=== PATIENT | male | born 1965 | race Caucasian/White ===

== ENCOUNTER 2020-09-17 13:04 | Inpatient (IN) | payer OTHER ==
[~2020-09-17] VITALS: Ht 182.9 cm; Wt 138.8 kg
[2020-09-17 13:17] VITALS: BP 159/54
[2020-09-17 14:23] LABS: CALCIUM 7.9 mg/dL (8.5-10.1); CREATININE 1.1 mg/dL (0.6-1.3); POTASSIUM 4.1 mmol/L (3.5-5.1)
[2020-09-17 14:27] LABS: ALBUMIN 3.3 g/dL (3.4-5.0); MAGNESIUM 1.9 mg/dL (1.8-2.4); TOTAL PROTEIN 7.8 g/dL (6.4-8.2)
[2020-09-17 14:32] LABS: BE 0 mmol/L (-2 to +3); PCO2 35.5 mmHg (35.0-45.0); pH 7.441 (7.340-7.450)
[2020-09-17 14:34] LABS: PO2 57.3 mmHg (75.0-100.0)
[2020-09-17 15:12] LABS: ABSOLUTE LYMPHOCYTES 0.8 thou/uL (0.8-5.3); ABSOLUTE MONOCYTES 0.4 thou/uL (0.0-1.2); BASOPHILS 0.6 %; EOSINOPHILS 0.1 %; HEMATOCRIT 39.7 % (42.0-52.0); LYMPHOCYTES 24.7 %; MCH 31.8 pg (26.0-34.0); MCHC 35.2 g/dL (28.0-37.0); MCV 90.3 fL (80.0-100.0); MONOCYTES 11.4 %; NUCLEATED RBCS 0 /100WBC; PLATELET COUNT* 75 thou/uL (150-400); POLYS 63.2 %; RBC 4.39 mil/uL (4.50-6.00); RDW-CV 13.1 % (10.5-14.5); WBC 3.2 thou/uL (4.0-11.0)
[2020-09-17 15:58] LABS: INFLUENZA A ANTIGEN Negative (Negative); INFLUENZA B ANTIGEN Negative (Negative)
[2020-09-17 16:41] VITALS: BP 113/78
--- NOTE | 2020-09-17 17:00 | NUR ---
ASSUMED CARE OF PATIENT FROM THE ER. PT IS DOING WELL, WITH NO CO OF PIBEBE, JUST DISCOMFORT FROM COUGHING. PT WAS EDUCATED ON POC, DISEASE PROCESS AND USING THE CALL LIGHT FOR ASSISTANCE. WILL CONTINUE TO MONITOR.
[2020-09-17] MEDS ORDERED: ZINC SULFATE 2220 MG PO (19:24)
[2020-09-17] MEDS ORDERED: B COMPLEX1 EACH PO (19:25)
[2020-09-17] MEDS ORDERED: VITAMIN C500 MG/15 PO (19:26)
[2020-09-17] MEDS ORDERED: TYLENOL325 M1 PO (19:27)
[2020-09-17 19:45] VITALS: BP 125/76
[2020-09-18] VITALS: BP 138/71
[2020-09-18 04:39] VITALS: BP 133/65
--- NOTE | 2020-09-18 05:01 | NUR ---
PT SLEPT OFF AND ON OVERNIGHT. O2 3L SAT 95%. REQUESTING RECLINER STATING HE SLEEPS IN ONE AT HOME MORE COMFORTABLY-NONE AVAILABLE AT THIS TIME. STATES HE SLEPT FAIRLY COMFORTABLY WITH BED IN UPRIGHT POSITION. UP AD NORMA IN ROOM WITH O2 EXTENSION TUBING WALKING TO BR TO VOID. CONFIRMS SOME SOA WITH AMBULATION-DENIES DIZZINESS. RFA IVF INFUSING PER PUMP, ABX GIVEN ORDERED. NO LABS THIS MORNING. TELE SR. REMAINS ON ENHANCED PRECAUTION ISOLATION-NO CART AVAILABLE PER OVERNIGHT NURSING SUP. CONGESTED COUGH HEARD. COVID PCR PENDING. ABLE TO USE CALL LITE AND MAKE NEEDS KNOWN.
[2020-09-18 06:53] LABS: URINE BILIRUBIN NEGATIVE (Negative); URINE BLOOD NEGATIVE (Negative); URINE CLARITY CLEAR; URINE COLOR YELLOW; URINE GLUCOSE-RANDOM NEGATIVE (Negative); URINE KETONES TRACE (Negative); URINE LEUKOCYTES-REFLEX NEGATIVE (Negative); URINE NITRITE-REFLEX NEGATIVE (Negative); URINE PROTEIN TRACE (Negative); URINE SPECIFIC GRAVITY >= 1.030 (1.005-1.030); URINE UROBILINOGEN 0.2 E.U./dl (0.2-1.0)
[2020-09-18 08:00] VITALS: BP 151/61
--- NOTE | 2020-09-18 10:16 | EKG ---
[place] [address] ELECTROCARDIOGRAM REPORT Name: CHANINHI Room: [address] ADM IN ..#: [id number] Admission: 09/17/20 Attend Phys: Michael Zavala Discharge: Date of : 65 Date of Service: 09/17/20 1309 Report #: [id number] THIS REPORT FOR: //name// [facility] ED Test Date: 2020-09-17 Test Time: 13:09:58 Pat Name: NHI WILDE Department: Room: [facility] Gender: M Lubricating Specialist: CALE : 1965 Requested By: Carlotta Bro Order Number: [id number] MD: Marquise Zhao Measurements Intervals [place] Rate: 88 P: 3 WI: 154 QRS: 21 QRSD: 83 T: 42 QT: 330 QTc: 400 Interpretive Statements Sinus rhythm Low voltage, precordial leads RSR' in V1 or V2, probably normal variant Baseline wander in lead(s) V1,V3 No previous ECG available for comparison Electronically Signed On 09-18-2020 10:16:46 HAM FACER by Marquise Zhao [email or web address] <ELECTRONICALLY SIGNED> By: Marquise Zhao MD, FACC 09/18/20 1016 1309 1309 Marquise Zhao MD, FAC /EPI
[2020-09-18 11:24] VITALS: BP 112/61
[2020-09-18 16:00] VITALS: BP 110/54
[2020-09-18 17:28] LABS: ABSOLUTE LYMPHOCYTES 0.5 thou/uL (0.8-5.3); ABSOLUTE MONOCYTES 0.3 thou/uL (0.0-1.2); ABSOLUTE NEUTROPHILS 2.5 thou/uL (1.6-8.1); BASOPHILS 0.2 %; HEMATOCRIT 37.9 % (42.0-52.0); HEMOGLOBIN 13.2 gm/dL (14.0-18.0); LYMPHOCYTES 15.8 %; MCH 31.4 pg (26.0-34.0); MCHC 34.9 g/dL (28.0-37.0); MONOCYTES 8.7 %; NUCLEATED RBCS 0 /100WBC; PLATELET COUNT* 86 thou/uL (150-400); POLYS 75.3 %; RBC 4.21 mil/uL (4.50-6.00); RDW-CV 12.9 % (10.5-14.5); WBC 3.4 thou/uL (4.0-11.0)
[2020-09-18 17:42] LABS: APTT 28.4 Seconds (25.0-31.3); PROTIME 10.7 Seconds (9.20-11.50)
[2020-09-18 17:45] LABS: CALCIUM 7.8 mg/dL (8.5-10.1); CREATININE 1.2 mg/dL (0.6-1.3); POTASSIUM 4.1 mmol/L (3.5-5.1); TOTAL BILIRUBIN 0.6 mg/dL (<0.1-1.0); TOTAL PROTEIN 7.7 g/dL (6.4-8.2)
--- NOTE | 2020-09-18 20:44 | NUR ---
PT RESTING AT THIS TIME. 02 SAT 93% ON 3L NC. PT REPORTS PRODUCTIVE COUGH. DID HAVE INCIDENCE OF COUGHING TWICE ON SHIFT.SR ON MONITOR. PT ALSO STATED THAT DID TEST POSTIVE FOR COVID WHILE ASSESSING PT. PT STATES THAT HE DOES USUALLY SLEEP IN RECLINER AT HOME R/T GERD. PT SHOWN HOW TO PLACE BED IN CHAIR POSITION DUE TO LACK OF RECLINER AVAILABILITY. NOTHING FURTHER AT THIS TIME.CLWR.
[2020-09-18 20:45] VITALS: BP 118/47
--- NOTE | 2020-09-18 21:16 | CON ---
[address] [address] CONSULTATION Name: NHI WILDE Room: [address] IN M.R.#: [id number] Admission: 09/17/20 Attend Phys: Jesus Biggs Discharge: Date of : 65 Report #: [id number] THIS REPORT FOR: cc: EZ - Rocío family physician/PCP EZ - No family physician/PCP ~ Abdulaziz Mendez MD DATE OF SERVICE: 09/18/2020 REQUESTING PHYSICIAN: Michael Zavala DO INDICATION FOR CONSULTATION: Multifocal pneumonia and suspected COVID-19. HISTORY OF PRESENT ILLNESS: A 55-year-old gentleman with past medical history includes a history of gastroesophageal reflux disease. He also has a body mass index elevated to 42 and I suspect that he may have underlying obstructive sleep apnea, not previously diagnosed. The patient, however, otherwise does not have any other past medical history and he also is reported to be a lifetime nonsmoker. The patient is now admitted with a respiratory illness of several days' duration. He says he has been short of breath for the last one week. Shortness of breath, initially was on exertion now present at rest as well. He also reports having had a cough, but not much sputum. He reports that he has been febrile, has been having epigastric and abdominal pain and earlier had chest pain as well. He says he as a result, has had a poor appetite for the last 3 days and has had significant amounts of nausea. On admission, the patient was noted to be hypoxemic. Currently, he is requiring 3 liters of oxygen to maintain O2 saturation in the low 90s. His platelets are also low at 75 and there is mild reduction in WBC count. The patient answers to the negative for 12 questions for review of systems except as mentioned above. PAST MEDICAL HISTORY: Gastroesophageal reflux disease, morbid obesity, body mass index 42. CURRENT MEDICATIONS: List in [employer] reviewed. HOME MEDICATIONS: No known home medications. ALLERGIES: No known drug allergies. FAMILY HISTORY: No family history. PHYSICAL EXAMINATION: [place] [address] CONSULTATION Name: NHI WILDE Room: [address]#: [id number] Admission: 09/17/20 Attend Phys: Jesus Biggs Discharge: Date of : 65 Report #: [id number] GENERAL: Alert, awake and oriented, does not appear to be in any distress; however, the patient's RN reports that he is currently on 3 liters nasal cannula, maintaining his O2 saturation around 92%. Has a pulse of 69 and a blood pressure of 112/61, respiratory rate has been between 22 and 19. He is afebrile with a temperature of 36.6. HEENT: Head is normocephalic and atraumatic. NECK: Does not show raised JVP, asymmetry, mass or lymph nodes. CHEST: Symmetrical expansion on inspection and palpation. On auscultation, breath sounds are bilaterally equal, but decreased. I do not hear any added sounds. HEART: Regular. There is no murmur. ABDOMEN: Soft and nontender. EXTREMITIES: Lower extremities show minimal edema only. No calf tenderness. SKIN: Dry and intact. NEUROLOGICAL: Moves all extremities bilaterally equally and spontaneously with no focal deficit identified. LABORATORY DATA: The patient had a chest x-ray performed yesterday, which shows interstitial infiltrates consistent with COVID-19. The patient's lab work is in [employer] and this is reviewed. The patient's COVID-19 antigen is negative. The patient's COVID-19 PCR is pending. ASSESSMENT AND PLAN: 1. Acute hypoxemic respiratory failure secondary to pneumonia. The patient's chest x-ray is consistent with COVID-19. Certainly, there could be other etiologies as well. At this time, we will continue to titrate oxygen. It appears highly likely to me that the patient has obstructive sleep apnea. Therefore, I recommend having a very low threshold of using BiPAP while asleep if the patient's condition worsens. 2. Pulmonary infiltrates/pneumonia/suspected COVID-19. The patient is hypoxemic on room air. The patient also has had a drop in platelet count, and there is a mild reduction in WBC count. All of these make him high risk for progression and worsening of respiratory failure. Therefore, in addition to continuing with dexamethasone as already ordered, I recommend that we proceed with starting remdesivir as well. I will go ahead and repeat labs as well as a chest x-ray now. Some cultures and serologies are also ordered. We will review and then decide regarding whether convalescent plasma for COVID-19 should be considered as well or whether we should wait for the PCR result. If doubt remains, then I may go ahead with a CT chest, this evening. Meanwhile, we will also continue with broad-spectrum antibiotics. I did increase his dose of ceftriaxone. 3. Mild fluid overload. For now, I discontinued IV fluids. We will reassess when labs ordered now are back. 4. Morbid obesity/suspected obstructive sleep apnea. See discussion above. [address] [address] CONSULTATION Name: NHI WILDE Room: [facility] IN [facility]#: [id number] Admission: 09/17/20 Attend Phys: Jesus Biggs Discharge: Date of : 65 Report #: [id number] 5. Gastroesophageal reflux disease. He is on both Pepcid and Protonix at this time. For now, I will continue with Protonix and held Pepcid. 6. Thrombocytopenia/deep venous thrombosis prophylaxis, he is on prophylactic dose Lovenox. Note that his platelets are 75. I ordered repeat labs after which I will reassess. Continue to follow platelet count. D-dimer is also ordered. Thanks for this consultation. <ELECTRONICALLY SIGNED> By: Abdulaziz Mendez MD 09/18/20 2116 1529 1613Arina Mendez MD /nt
[2020-09-19 00:05] VITALS: BP 116/54
[2020-09-19 04:43] VITALS: BP 110/56
--- NOTE | 2020-09-19 05:04 | NUR ---
PT SLEPT OFF AND ON OVERNIGHT, CONGESTED COUGH HEARD. O2 4L SAT 91% OVERNIGHT. RAC SL, MEDICATIONS GIVEN ORDERED. UP AD NORMA IN ROOM WITH OXYGEN. PT STATES HE FEELS A LITTLE BETTER BUT "STILL AWAYS TO GO". MRSA SWAB SENT TO LAB, URINE SENT TO LAB THIS SHIFT. PT STATES HE DOES NOT WANT "ANY OF THAT TAINTED BLOOD. I DONT WANT TO GET BLOOD AT ALL." LUNGS DIM COARSE. NO LABS THIS MORNING. ABLE TO USE CALL LITE AND MAKE NEEDS KNOWN.
[2020-09-19 07:30] VITALS: BP 119/60
[2020-09-19 10:58] LABS: CALCIUM 8.4 mg/dL (8.5-10.1); CREATININE 1.2 mg/dL (0.6-1.3); POTASSIUM 3.9 mmol/L (3.5-5.1)
[2020-09-19 12:07] VITALS: BP 118/66
--- NOTE | 2020-09-19 18:02 | NUR ---
PT AO X4 SITTING IN CHAIR MOST OF DAY, IV ANTIBIOTICS AND STEROIDS INFUSING PER MAR. PT HAS COUGH AND HAS BEEN USING THE INSENTIVE SPIROMETER INSTRUCTED, REACHING 1500 AND HOLDING FOR 1-2 SECONDS EACH TIME. PT HAS BEEN ON 3L SATTING LOW 90s ALL DAY. HE HAS VOICED NO COMPLAINTS AND EATEN MOST OF HIS MEAL TRAYS TODAY, TAKING GOOD PO FLUID INTAKE.
[2020-09-19 20:18] VITALS: BP 117/68
[2020-09-20] VITALS: BP 129/79
[2020-09-20 04:00] VITALS: BP 106/65
--- NOTE | 2020-09-20 06:50 | NUR ---
PATIENT SLEPT PART OF THE NIGHT. PATIENT REMAINS ON OXYGEN AT 3L. IV REMAINS SALINE LOCKED. WILL CONTINUE TO MONITOR.
[2020-09-20 07:35] LABS: ABSOLUTE LYMPHOCYTES 0.6 thou/uL (0.8-5.3); ABSOLUTE MONOCYTES 0.4 thou/uL (0.0-1.2); ABSOLUTE NEUTROPHILS 6.8 thou/uL (1.6-8.1); HEMATOCRIT 38.3 % (42.0-52.0); HEMOGLOBIN 13.3 gm/dL (14.0-18.0); LYMPHOCYTES 7.1 %; MCH 31.1 pg (26.0-34.0); MCHC 34.8 g/dL (28.0-37.0); MCV 89.3 fL (80.0-100.0); MONOCYTES 5.6 %; MPV 9.5 fl. (7.2-11.1); NUCLEATED RBCS 0 /100WBC; PLATELET COUNT* 109 thou/uL (150-400); POLYS 87.3 %; RBC 4.29 mil/uL (4.50-6.00); RDW-CV 13.2 % (10.5-14.5); WBC 7.8 thou/uL (4.0-11.0)
[2020-09-20 07:48] LABS: ALBUMIN 2.9 g/dL (3.4-5.0); POTASSIUM 3.9 mmol/L (3.5-5.1); TOTAL BILIRUBIN 0.5 mg/dL (<0.1-1.0); TOTAL PROTEIN 7.4 g/dL (6.4-8.2)
[2020-09-20 08:00] VITALS: BP 112/70
--- NOTE | 2020-09-20 08:00 | NUR ---
ASSUMED CARE OF PATIENT THIS MORNING FROM NIGHT NURSE. PT IS DOING WELL WITH NO CO OF PAIN OR NAUSEA AT THIS TIME. HE WAS EDUCATED ONPOC, DISEASE PROCESS NEW TEST RESULTS AND USING THE CALL LIGHT FOR ASSISTSANCE. WILL CONTINUE TO MONITOR.
--- NOTE | 2020-09-20 09:39 | NUR ---
SPOKE WITH PT.ON PHONE. HE WAS ALERT AND ORIENTED. HE LIVES WITH HIS AND KIDS. IS NORMALLY INDEPENDENT. IS UNEMPLOYED AT THIS TIME. NO USE OF DME AND NO HX OF HH. PLANS TO RETURN HOME AT DISCHARGE.
[2020-09-20 20:19] VITALS: BP 117/61
[2020-09-21] VITALS (7 sets, daily range): BP systolic 101–128; BP diastolic 50–70
[2020-09-21 02:06] LABS: MYCOPLASMA PNEUMONIA IgG 543 U/mL (0-99); MYCOPLASMA PNEUMONIA IgM <770 U/mL (0-769)
[2020-09-21 08:52] LABS: ALBUMIN 2.8 g/dL (3.4-5.0); CALCIUM 7.7 mg/dL (8.5-10.1); TOTAL BILIRUBIN 0.5 mg/dL (<0.1-1.0); TOTAL PROTEIN 7.1 g/dL (6.4-8.2)
[2020-09-21 09:37] LABS: HEMATOCRIT 39.6 % (42.0-52.0); HEMOGLOBIN 13.5 gm/dL (14.0-18.0); MCH 31.3 pg (26.0-34.0); MCHC 34.1 g/dL (28.0-37.0); MCV 91.7 fL (80.0-100.0); MPV 9.5 fl. (7.2-11.1); NUCLEATED RBCS 0 /100WBC; PLATELET COUNT* 120 thou/uL (150-400); RBC 4.32 mil/uL (4.50-6.00); RDW-CV 13.3 % (10.5-14.5); WBC 7.5 thou/uL (4.0-11.0)
[2020-09-21 10:08] LABS: ABSOLUTE LYMPHOCYTES 0.8 thou/uL (0.8-5.3); ABSOLUTE MONOCYTES 0.2 thou/uL (0.0-1.2); ABSOLUTE NEUTROPHILS 6.5 thou/uL (1.6-8.1); METAMYELOCYTES 3 %; PLATELET ESTIMATE ADEQUATE
--- NOTE | 2020-09-21 16:26 | NUR ---
PT.S PCR SHOWS DETECTED COVID. IS IN ENHANCED PRECAUTIONS. ON 3-5L O2 NC. ON IV AB.
--- NOTE | 2020-09-21 18:30 | NUR ---
ASSESSMENT DOCUMENTED. MEDS GIVEN PER E-MAR. IV PATENT. PT TITRATED FROM 5L TO 3L NC THIS SHIFT. NO REPORTS OF PAIN. PT UP AD NORMA.
[2020-09-22 04:00] VITALS: BP 113/59
[2020-09-22 04:53] LABS: ALBUMIN 2.6 g/dL (3.4-5.0); CALCIUM 7.8 mg/dL (8.5-10.1); CREATININE 0.9 mg/dL (0.6-1.3); POTASSIUM 4.3 mmol/L (3.5-5.1); TOTAL BILIRUBIN 0.5 mg/dL (<0.1-1.0); TOTAL PROTEIN 6.6 g/dL (6.4-8.2)
[2020-09-22 04:58] LABS: ABSOLUTE LYMPHOCYTES 0.6 thou/uL (0.8-5.3); ABSOLUTE MONOCYTES 0.5 thou/uL (0.0-1.2); BASOPHILS 0.2 %; LYMPHOCYTES 7.9 %; MCH 31.5 pg (26.0-34.0); MCV 89.9 fL (80.0-100.0); MONOCYTES 6.6 %; MPV 9.2 fl. (7.2-11.1); NUCLEATED RBCS 0 /100WBC; PLATELET COUNT* 124 thou/uL (150-400); POLYS 85.3 %; RBC 4.12 mil/uL (4.50-6.00); RDW-CV 13.2 % (10.5-14.5); WBC 8.2 thou/uL (4.0-11.0)
--- NOTE | 2020-09-22 06:44 | NUR ---
ASSUMED CARE OF PT AFTER REPORT AT 1930. PT A&OX4. VSS. PHYSICAL ASSESSMENT COMPLETED AND CHARTED. PT O2 SAT 87-89%-INCREASED O2 TO 5L NC WITH 90% O2 SAT. PT TRACING SR/SB ON TELE. PT UPADLIB TO RESTROOM. PT DENIES ANY PAIN. PT ABLE TO SLEEP WELL IN THE RECLINER. CALL LIGHT WITHIN REACH.
[2020-09-22 07:50] VITALS: BP 116/63
[2020-09-22 12:00] VITALS: BP 146/67
--- NOTE | 2020-09-22 15:47 | NUR ---
ON 5L/NC O2. CONTINUES ON IVAB,STEROIDS, REMDESIVIR. DOES NOT HAVE HOME O2.
[2020-09-22 16:00] VITALS: BP 151/65
--- NOTE | 2020-09-22 18:19 | NUR ---
ASSESSMENT DOCUMENTED. MEDS GIVEN PER E-MAR. IV PATENT. NO REPORTS OF PAIN THIS SHIFT. PT ON 5L NC THIS SHIFT. PT REPORTED BLOODY STOOLS. DR NOTIFED.
[2020-09-22 20:00] VITALS: BP 132/81
[2020-09-23] VITALS: BP 127/52
[2020-09-23 03:55] LABS: ABSOLUTE LYMPHOCYTES 0.7 thou/uL (0.8-5.3); ABSOLUTE MONOCYTES 0.6 thou/uL (0.0-1.2); ABSOLUTE NEUTROPHILS 10.1 thou/uL (1.6-8.1); BASOPHILS 0.2 %; HEMATOCRIT 41.1 % (42.0-52.0); LYMPHOCYTES 5.8 %; MCH 30.6 pg (26.0-34.0); MONOCYTES 5.4 %; MPV 9.2 fl. (7.2-11.1); NUCLEATED RBCS 0 /100WBC; PLATELET COUNT* 158 thou/uL (150-400); POLYS 88.6 %; RBC 4.57 mil/uL (4.50-6.00); RDW-CV 13.1 % (10.5-14.5); WBC 11.4 thou/uL (4.0-11.0)
[2020-09-23 04:00] VITALS: BP 131/76
[2020-09-23 04:11] LABS: ALBUMIN 2.9 g/dL (3.4-5.0); CALCIUM 8.4 mg/dL (8.5-10.1); POTASSIUM 4.1 mmol/L (3.5-5.1); TOTAL BILIRUBIN 0.6 mg/dL (<0.1-1.0); TOTAL PROTEIN 7.2 g/dL (6.4-8.2)
--- NOTE | 2020-09-23 05:10 | NUR ---
ASSUMED CARE OF PT AFTER REPORT AT 1930. PT A&OX4. VSS. PHYSICAL ASSESSMENT COMPLETED AND CHARTED. PT ON O2 AT 5L NC. PT TRACING SR/SB ON TELE. PT UPADLIB TO RESTROOM. PT DENIES ANY PAIN. CALL LIGHT WITHIN REACH.
[2020-09-23 07:35] VITALS: BP 133/69
[2020-09-23 14:06] VITALS: BP 138/71
[2020-09-23 18:10] VITALS: BP 122/71
--- NOTE | 2020-09-23 18:48 | NUR ---
PT A&OX4 VSS. PT IN RECLINER AT TIME OF ASSESSMENT. PT ON 4.5L O2 BY NC. PT REMAINS SINUS ON MONITOR. EDEMA OBSERVED TO BLE, FUROSEMIDE ADMINISTERED ORDERED THIS SHIFT. PT DENIES PAIN. PT REMAINS ON ISOLATION PRECAUTIONS. PT RESTS IN RECLINER WITH CALL LIGHT IN REACH. PT UP AD NORMA, GAIT STEADY, CONTINENT OF B/B. WILL CONTINUE TO MONITOR
[2020-09-23 20:00] VITALS: BP 114/72
[2020-09-24 04:00] VITALS: BP 104/67
--- NOTE | 2020-09-24 04:04 | NUR ---
PT A&O X 4, VSS. SAT 94-95% ON 3L O2 BY CT. MEDS GIVEN ORDERED. UP AD NORMA. PT SAID SWELLING ON HIS FEET GOT MUCH BETTER. NO C/O PAIN. WILL CONTINUE TO MONITOR.
[2020-09-24 05:57] LABS: ABSOLUTE LYMPHOCYTES 0.6 thou/uL (0.8-5.3); ABSOLUTE MONOCYTES 0.6 thou/uL (0.0-1.2); ABSOLUTE NEUTROPHILS 8.9 thou/uL (1.6-8.1); BASOPHILS 0.3 %; EOSINOPHILS 0.1 %; HEMATOCRIT 39.1 % (42.0-52.0); HEMOGLOBIN 13.6 gm/dL (14.0-18.0); LYMPHOCYTES 6.4 %; MCH 31.4 pg (26.0-34.0); MCHC 34.8 g/dL (28.0-37.0); MCV 90.1 fL (80.0-100.0); MONOCYTES 5.9 %; MPV 8.7 fl. (7.2-11.1); NUCLEATED RBCS 0 /100WBC; PLATELET COUNT* 145 thou/uL (150-400); POLYS 87.3 %; RBC 4.34 mil/uL (4.50-6.00); RDW-CV 13.2 % (10.5-14.5); WBC 10.2 thou/uL (4.0-11.0)
[2020-09-24 06:16] LABS: CALCIUM 8.3 mg/dL (8.5-10.1); POTASSIUM 4.5 mmol/L (3.5-5.1)
[2020-09-24 07:35] VITALS: BP 118/65
[2020-09-24 12:27] VITALS: BP 115/63
[2020-09-24 16:59] VITALS: BP 105/70
--- NOTE | 2020-09-24 18:31 | NUR ---
PT A&OX4 VSS. PT UP AD NORMA. PT ON 2.5L O2. PT SINUS ON MONITOR. PT DENIES PAIN AT THIS TIME. PT FOUND TO BE RESTING IN BED THIS AM AT TIME OF ASSESSMENT. IV TO RAC DC'D D/T LEAKING. 20g INSERTED TO R HAND. SALINE LOCKED. PT REMAINS ON ISOLATION PRECAUTIONS. PT STATES HE FEELS BETTER TODAY THAN YESTERDAY. PT UP TO RECLINER THIS SHIFT. PT RESTS WITH CALL LIGHT IN REACH, WILL CONTINUE TO MONITOR.
[2020-09-24 20:30] VITALS: BP 122/71
[2020-09-25 00:02] VITALS: BP 113/71
--- NOTE | 2020-09-25 04:06 | NUR ---
PT A&O, VSS ON 3L. MEDS GIVEN ORDERED. PT SLEPT IN BED THROUGH THE NIGHT. UP INDEPENDENTLY IN THE ROOM. NO OTHER CONCERNS AT THIS TIME. WILL CONTINUE TO MONITOR.
[2020-09-25 05:24] VITALS: BP 122/68
[2020-09-25 08:00] VITALS: BP 111/70
[2020-09-25] MEDS ORDERED: DEXAMETHASONE1 MG PO (08:20)
[2020-09-25] MEDS ORDERED: DOXYCYCLINE 10100 MG PO (08:20)
[2020-09-25] MEDS ORDERED: VENTOLIN HFA 1818 GM INH (08:20)
[2020-09-25] MEDS ORDERED: PROTONIX40 M4 PO (08:20)
[2020-09-25 12:50] VITALS: BP 121/71
[2020-09-25 16:55] VITALS: BP 116/70
== END 2020-09-25 18:33 | disposition home or self-care (01) | DRG 871 ==
LOC: M.ERS 13:04 → M.TBA-ER 15:32 → M.ORTHSURG 15:32
PROVIDERS: Internal Medicine; Internal Medicine Critical Care Medicine; Personal Emergency Response Attendant; ADMIT Internal Medicine; ATTEND Internal Medicine
PROC: XW033E5 Introduction of Remdesivir Anti-infective into Peripheral Vein, Percutaneous Approach, New Technology Group 5 (ICD-10-PCS; principal; 2020-09-18)
DX: A41.89 Other specified sepsis (principal); U07.1 COVID-19; J96.01 Acute respiratory failure with hypoxia; J12.89 Other viral pneumonia; Z68.41 Body mass index [BMI] 40.0-44.9, adult; E66.01 Morbid (severe) obesity due to excess calories; K21.9 Gastro-esophageal reflux disease without esophagitis; Z79.899 Other long term (current) drug therapy; Z28.21 Immunization not carried out because of patient refusal

== ENCOUNTER 2020-10-09 00:50 | Emergency (ER) | payer OTHER ==
[~2020-10-09] VITALS: Ht 182.9 cm; Wt 134.2 kg
[~2020-10-09 00:50] MED LIST: B COMPLEX1 EACH PO; DEXAMETHASONE1 MG PO; DOXYCYCLINE 10100 MG PO; PROTONIX40 M4 PO; TYLENOL325 M1 PO; VENTOLIN HFA 1818 GM INH; VITAMIN C500 MG/15 PO; ZINC SULFATE 2220 MG PO
[2020-10-09 01:25] LABS: ABSOLUTE EOSINOPHILS 0.1 thou/uL (0.0-0.7); ABSOLUTE LYMPHOCYTES 1.3 thou/uL (0.8-5.3); ABSOLUTE MONOCYTES 0.4 thou/uL (0.0-1.2); ABSOLUTE NEUTROPHILS 3.2 thou/uL (1.6-8.1); BASOPHILS 0.5 %; EOSINOPHILS 2.5 %; HEMATOCRIT 36.9 % (42.0-52.0); HEMOGLOBIN 12.9 gm/dL (14.0-18.0); LYMPHOCYTES 25.8 %; MCH 31.6 pg (26.0-34.0); MCHC 34.8 g/dL (28.0-37.0); MCV 90.7 fL (80.0-100.0); MONOCYTES 7.4 %; MPV 8.9 fl. (7.2-11.1); NUCLEATED RBCS 0 /100WBC; PLATELET COUNT* 76 thou/uL (150-400); POLYS 63.8 %; RBC 4.07 mil/uL (4.50-6.00); RDW-CV 13.6 % (10.5-14.5)
[2020-10-09 01:36] LABS: CALCIUM 8.9 mg/dL (8.5-10.1); CREATININE 1.4 mg/dL (0.6-1.3); POTASSIUM 3.8 mmol/L (3.5-5.1)
[2020-10-09 01:36] LABS: BE 1.4 mmol/L (-2 to +3); PCO2 43.6 mmHg (35.0-45.0); PO2 97.6 mmHg (75.0-100.0); pH 7.402 (7.340-7.450)
[2020-10-09 01:41] LABS: ALBUMIN 3.1 g/dL (3.4-5.0); MAGNESIUM 2.1 mg/dL (1.8-2.4); TOTAL BILIRUBIN 0.8 mg/dL (<0.1-1.0); TOTAL PROTEIN 6.9 g/dL (6.4-8.2)
[2020-10-09 01:48] LABS: PROTIME 10.6 Seconds (9.20-11.50)
[2020-10-09] MEDS ORDERED: KEFLEX500 M1 PO (04:13)
[2020-10-09 04:40] VITALS: BP 133/67
--- NOTE | 2020-10-09 12:50 | EKG ---
[place] [address] ELECTROCARDIOGRAM REPORT Name: NHI WILDEN Room: [facility]#: [id number] Admission: 10/09/20 Attend Phys: Discharge: 10/09/20 Date of : 65 Date of Service: 10/09/20 0414 Report #: [id number] THIS REPORT FOR: //name// [facility] ED Test Date: 2020-10-09 Test Time: 04:14:14 Pat Name: NHI WILDE Department: Room: Gender: President: [place] : 1965 Requested By: Carlotta Bro Order Number: [id number] MD: Stalin Paz Measurements Intervals [place] Rate: 66 P: -4 GA: 194 QRS: 4 QRSD: 82 T: 19 QT: 393 QTc: 412 Interpretive Statements Sinus rhythm Low voltage, precordial leads RSR' in V1 or V2, probably normal variant Compared to ECG 09/17/2020 13:09:58 No significant changes Electronically Signed On 10-09-2020 12:49:51 LEAD GAME DESIGNER by Stalin Paz [email or web address] <ELECTRONICALLY SIGNED> By: Calvin Paz MD, [facility] 10/09/20 1249 0414 0414 Calvin Paz MD, [facility] /EPI
== END 2020-10-09 04:40 | disposition home or self-care (01) ==
LOC: M.ERS 00:50
PROVIDERS: Personal Emergency Response Attendant
DX: L03.116 Cellulitis of left lower limb (principal); Z20.828 Contact with and (suspected) exposure to other viral communicable diseases; L03.115 Cellulitis of right lower limb; K21.9 Gastro-esophageal reflux disease without esophagitis; Z79.899 Other long term (current) drug therapy

== ENCOUNTER 2020-10-25 09:36 | Emergency (ER) | payer OTHER ==
[~2020-10-25] VITALS: Ht 182.9 cm; Wt 136.1 kg
[~2020-10-25 09:36] MED LIST changes: +KEFLEX500 M1 PO
[2020-10-25 10:38] LABS: ABSOLUTE EOSINOPHILS 0.1 thou/uL (0.0-0.7); ABSOLUTE MONOCYTES 0.4 thou/uL (0.0-1.2); ABSOLUTE NEUTROPHILS 2.9 thou/uL (1.6-8.1); EOSINOPHILS 1.3 %; HEMATOCRIT 37.3 % (42.0-52.0); HEMOGLOBIN 12.7 gm/dL (14.0-18.0); LYMPHOCYTES 22.3 %; MCH 31.4 pg (26.0-34.0); MCHC 34.1 g/dL (28.0-37.0); MCV 91.9 fL (80.0-100.0); MONOCYTES 9.9 %; NUCLEATED RBCS 0 /100WBC; PLATELET COUNT* 137 thou/uL (150-400); POLYS 65.5 %; RBC 4.06 mil/uL (4.50-6.00); RDW-CV 14.4 % (10.5-14.5); WBC 4.4 thou/uL (4.0-11.0)
[2020-10-25 10:47] LABS: CALCIUM 9.1 mg/dL (8.5-10.1); POTASSIUM 3.9 mmol/L (3.5-5.1)
[2020-10-25 10:58] LABS: ALBUMIN 3.2 g/dL (3.4-5.0); TOTAL BILIRUBIN 0.6 mg/dL (<0.1-1.0); TOTAL PROTEIN 6.8 g/dL (6.4-8.2)
[2020-10-25] MEDS ORDERED: KEFLEX500 M1 PO (11:15)
[2020-10-25 11:45] VITALS: BP 127/67
--- NOTE | 2020-10-25 18:17 | EKG ---
[place] [address] ELECTROCARDIOGRAM REPORT Name: CHANINHI PEÑAN Room: [facility]#: [id number] Admission: 10/25/20 Attend Phys: Discharge: 10/25/20 Date of : 65 Date of Service: 10/25/20 1023 Report #: [id number] THIS REPORT FOR: //name// [facility] ED Test Date: 2020-10-25 Test Time: 10:23:49 Pat Name: NHI WILDE Department: Room: Gender: Window Display Designer: [facility] : 1965 Requested By: Cynthia Mobley Order Number: [id number] MD: Burke Bryant Measurements Intervals [place] Rate: 67 P: -17 ND: 193 QRS: 3 QRSD: 87 T: 23 QT: 377 QTc: 398 Interpretive Statements Sinus rhythm Low voltage, precordial leads Abnormal R-wave progression, early transition Compared to ECG 10/09/2020 04:14:14 No significant changes Electronically Signed On 10-25-2020 18:17:09 ELECTION SUPERVISOR by Burke Bryant [email or web address] <ELECTRONICALLY SIGNED> By: Burke Bryant MD, FACC 10/25/20 1817 1023 1023 Burke Bryant MD, [facility] /EPI
== END 2020-10-25 11:47 | disposition home or self-care (01) ==
LOC: M.ERS 09:36
PROVIDERS: Nurse Practitioner Family
DX: L03.115 Cellulitis of right lower limb (principal); L03.116 Cellulitis of left lower limb; K21.9 Gastro-esophageal reflux disease without esophagitis; Z79.899 Other long term (current) drug therapy